=== PATIENT | male | born 1965 | race Caucasian/White ===

== ENCOUNTER 2018-07-22 04:32 | Emergency (ER) | payer OTHER ==
[~2018-07-22] VITALS: Ht 170.2 cm; Wt 83.9 kg
--- NOTE | 2018-07-22 04:51 | NUR ---
Dr. John MORRISON MD at bedside to evaluate pt.
--- NOTE | 2018-07-22 05:00 | NUR ---
Patient discharged to home in stable conditon. Written and verbal after care instructions given. Patient verbalizes understanding of instructions. Pt walked out of ER in stable gait with . NAD noted.
[2018-07-22 05:04] VITALS: BP 112/84
== END 2018-07-22 05:04 | disposition home or self-care (01) ==
LOC: ER 04:35
DX: J02.9 Acute pharyngitis, unspecified (principal); R53.1 Weakness
CPT/HCPCS: A4663

== ENCOUNTER 2018-08-17 19:11 | Emergency (ER) | payer OTHER ==
[~2018-08-17] VITALS: Ht 170.2 cm; Wt 83.9 kg
--- NOTE | 2018-08-17 19:50 | NUR ---
Patient ambulated with stable gait. A/Ox4. Speech is clear, speaks in complete sentences. No neuro deficits. Patient came for c/o RLE pain in calf and knee. No trauma, patient was running on treadmill and experienced pain shortly after. Pain 0/10 when not ambulating, 3/10 when ambulating. Denies any numbness tingling, and patient has full ROM in RLE. BLE examined, and are visually symmetric with no severe swelling. Denies any shortness of breath, respiratory even and unlabored. No cardiovascular distress noted, all pulses palpable no noticeable redness or edema in RLE No GI/ distress noted Patient in bed at lowest position, sr upx2, call light within reach. Fall precautions implemented per protocol. at bedside accompanying patient.
--- NOTE | 2018-08-17 20:26 | NUR ---
US tech at bedside for scan.
--- NOTE | 2018-08-17 20:54 | NUR ---
Patient discharged to home in stable conditon. Written and verbal after care instructions given. Patient verbalizes understanding of instructions. Patient ambulated with stable gait.
== END 2018-08-17 20:56 | disposition home or self-care (01) ==
LOC: ER 19:12
DX: M25.561 Pain in right knee (principal); M79.661 Pain in right lower leg
CPT/HCPCS: A4663